=== PATIENT | male | born 1995 | race Caucasian/White ===

== ENCOUNTER 2018-02-22 01:09 | Emergency (ER) | payer OTHER ==
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
[2018-02-22 02:07] LABS: ABSOLUTE BASOPHILS # (AUTO) 0.1 10^3/uL (0.0-0.2); ABSOLUTE EOSINOPHILS # (AUTO) 0.2 10^3/uL (0.0-0.6); ABSOLUTE LYMPHOCYTES (AUTO) 2.4 10^3/uL (0.5-4.7); ABSOLUTE MONOCYTES (AUTO) 0.4 10^3/uL (0.1-1.4); ABSOLUTE NEUT (AUTO) 3.4 10^3/uL (1.7-8.2); BASOPHILS % (AUTO) 0.8 % (0-2); HEMATOCRIT 43.2 % (37.9-51.0); HEMOGLOBIN 14.9 g/dL (13.5-17.0); LYMPHOCYTES % (AUTO) 37.3 % (13-45); MEAN CORPUSCULAR HEMOGLOBIN 30.4 pg (27.0-33.4); MEAN CORPUSCULAR HGB CONC 34.4 g/dL (32.0-36.0); MEAN CORPUSCULAR VOLUME 88 fl (80-97); MONOCYTES % (AUTO) 6.6 % (3-13); PLATELET COUNT 185 10^3/uL (150-450); RED BLOOD COUNT 4.89 10^6/uL (4.35-5.55); RED CELL DISTRIBUTION WIDTH 13.8 % (11.5-14.0); SEGMENTED NEUTROPHILS % (AUTO) 52.3 % (42-78); TOTAL CELLS COUNTED % (AUTO) 100 %; WHITE BLOOD COUNT 6.5 10^3/uL (4.0-10.5)
[2018-02-22 02:18] LABS: APPEARANCE,URINE CLEAR; BILIRUBIN,URINE NEGATIVE (NEGATIVE); COLOR,URINE YELLOW; GLUCOSE, URINE NEGATIVE (NEGATIVE); KETONES,URINE NEGATIVE (NEGATIVE); URINE SPECIFIC GRAVITY 1.005
--- NOTE | 2018-02-22 02:18 | RADIOLOGY REPORT (SQ) ---
EXAM DESCRIPTION: CT cervical spine without contrast 02/22/2018 1:15 AM CDT CLINICAL HISTORY: 22 years, Male, Wrapped towel around his neck while in detention COMPARISON: None. TECHNIQUE: Volumetric CT acquisition was performed through the cervical spine. Images in the axial, coronal, and sagittal planes were presented for interpretation. This exam was performed according to our departmental dose-optimization program, which includes automated exposure control, adjustment of the mA and/or kV according to patient size and/or use of iterative reconstruction technique. FINDINGS: There are 7 cervical type vertebral bodies in normal anatomic alignment. There is no evidence of acute fracture or dislocation. There are no significant degenerative changes. At the C2/C3 level, there is normal disk space height without significant canal or neuroforaminal narrowing. At the C3/C4 level, there is normal disk space height without significant canal or neuroforaminal narrowing. At the C4/C5 level, there is normal disk space height without significant canal or neuroforaminal narrowing. At the C5/C6 level, there is normal disk space height without significant canal or neuroforaminal narrowing. At the C6/C7 level, there is normal disk space height without significant canal or neuroforaminal narrowing. The paravertebral and prevertebral soft tissues are normal. There are no fluid collections or evidence of soft tissue thickening. The musculature and soft tissue structures of the neck are within normal limits. There are no pathologically enlarged lymph nodes. The visualized vasculature is normal. The visualized portions of the brain and skull base are grossly unremarkable. Limited evaluation of the lung apices demonstrate no gross abnormalities. IMPRESSION: No acute fracture or dislocation of the cervical spine.
[2018-02-22 02:19] LABS: LEUKOCYTE ESTERASE,URINE NEGATIVE (NEGATIVE); NITRITE,URINE NEGATIVE (NEGATIVE); PROTEIN,URINE NEGATIVE (NEGATIVE); UROBILINOGEN,URINE NEGATIVE mg/dL (<2.0)
[2018-02-22 02:29] LABS: ALANINE AMINOTRANSFERASE 26 U/L (21-72); ALBUMIN 4.6 g/dL (3.5-5.0); ALKALINE PHOSPHATASE 51 U/L (38-126); ANION GAP 10 (5-19); ASPARTATE AMINO TRANSFERASE 25 U/L (17-59); BILIRUBIN,DIRECT 0.4 mg/dL (0.0-0.4); BLOOD UREA NITROGEN 15 mg/dL (7-20); CALCIUM 9.6 mg/dL (8.4-10.2); CARBON DIOXIDE 29 mmol/L (22-30); CHLORIDE 96 mmol/L (98-107); GLUCOSE 84 mg/dL (75-110); SODIUM 134.7 mmol/L (137-145); TOTAL PROTEIN 7.5 g/dL (6.3-8.2)
[2018-02-22 02:32] LABS: ALCOHOL < 10 mg/dL (NONE DETECTED); SALICYLATE < 1.0 mg/dL (2.0-20.0)
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
[2018-02-22 02:52] VITALS: BP 125/70
[2018-02-22 02:53] LABS: ACETAMINOPHEN < 10 ug/mL (10-30)
--- NOTE | 2018-02-22 09:33 | EKG REPORT ---
SEVERITY:- NORMAL ECG - SINUS RHYTHM WITH SINUS ARRHYTHMIA : Confirmed by: Alvin Medina 22-Feb-2018 09:32:37
== END 2018-02-22 02:45 | disposition home or self-care (01) ==
LOC: ER 01:09
DX: S10.83XA Contusion of other specified part of neck, initial encounter (principal); T71.162A Asphyxiation due to hanging, intentional self-harm, initial encounter; T14.8XXA Other injury of unspecified body region, initial encounter; R00.1 Bradycardia, unspecified; Z87.891 Personal history of nicotine dependence; F12.10 Cannabis abuse, uncomplicated; Z53.29 Procedure and treatment not carried out because of patient's decision for other reasons
CPT/HCPCS: 93005; 99285; 36415; 80307 ×3; 85025; 80053; 81001; 72125; 93010; L0120